=== PATIENT | male | born 1980 | race Caucasian/White ===

== ENCOUNTER 2018-01-05 21:49 | Emergency (ER) | payer OTHER ==
[2018-01-05 22:08] LABS: ADD MAN DIFF? NO
[2018-01-05 22:13] LABS: BASO # 0.1 x10^3/uL (0.0-0.2); BASO % 1 % (0-3); EOS # 0.1 x10^3/uL (0.0-0.7); EOS % 2 % (0-3); HEMATOCRIT 44.7 % (39.0-53.0); HEMOGLOBIN 14.6 g/dL (13.0-17.5); LYMPH # 1.8 x10^3/uL (1.0-4.8); LYMPH % 25 % (24-48); MEAN CORPUSCULAR HEMOGLOBIN 26 pg (25-35); MEAN CORPUSCULAR HGB CONC 33 g/dL (31-37); MEAN CORPUSCULAR VOLUME 78 fL (79-100); MONO # 0.7 x10^3/uL (0.0-1.1); MONO % 10 % (0-9); NEUT # 4.4 x10^3uL (1.8-7.7); NEUT % 62 % (31-73); PLATELET COUNT 194 x10^3/uL (140-400); RED BLOOD COUNT 5.74 x10^6/uL (4.30-5.70); RED CELL DISTRIBUTION WIDTH 17.5 % (11.5-14.5); WHITE BLOOD COUNT 7.1 x10^3/uL (4.0-11.0)
[2018-01-05 22:20] LABS: ANION GAP 11 (6-14); BLOOD UREA NITROGEN 13 mg/dL (8-26); CALCIUM 8.9 mg/dL (8.5-10.1); CARBON DIOXIDE 26 mmol/L (21-32); CHLORIDE 99 mmol/L (98-107); CREATININE 1.2 mg/dL (0.7-1.3); GFR 67.4; GLUCOSE 112 mg/dL (70-99); POTASSIUM 3.1 mmol/L (3.5-5.1); SODIUM 136 mmol/L (136-145)
[2018-01-05 22:22] LABS: INR 1.1 (0.8-1.1); PARTIAL THROMBOPLASTIN TIME 25 SEC (24-38); PROTHROMBIN TIME PATIENT 13.3 SEC (11.7-14.0)
[2018-01-05] MEDS: IV NORMAL SALINE 1000ML BAG 1,000 ML IV (22:22)
== END 2018-01-06 01:53 | disposition home or self-care (01) ==
LOC: ER 01-06 01:53
DX: F41.9 Anxiety disorder, unspecified (principal); R00.2 Palpitations; R00.0 Tachycardia, unspecified; F32.9 Major depressive disorder, single episode, unspecified
CPT/HCPCS: 36415; 80048; 84484; 85025; 85610; 85730; 93005; 96374; 96375; 96376; 99285-25; J2060; J7030

== ENCOUNTER → 2019-04-11 | Day surgery (SDC) | payer OTHER ==
[~2019-04-11] MED LIST: ALPR1TAB2 PO; ASPI81TA50 PO; BUSP10TA PO; CARV25TA PO; IV RINGERS,LACTATED 1000ML 1,000 ML IV SCH; LIDOCAINE 2% PF 5 ML VIAL. ONE; LORA-434 PO; MULT1TAB52 PO; PROPOFOL 20 ML IV ONE; SACU1TAB PO; SPIR25TA PO; TRAZ-118 PO; WARF-31 PO
[2019-04-11 14:47] VITALS: BP 132/85
--- NOTE | 2019-04-12 14:06 | PATHOLOGY ---
[facility] Accession Number: [id number] . 01 Material submitted: . esophagus - DISTAL ESOPHAGUS BIOPSIES. Modifiers: distal . 01 Clinical history: . Epigastric pain . 02 Diagnosis: Esophageal biopsies, distal esophagus: - Segments of hyperplastic squamous esophageal mucosa showing focal active chronic inflammation, consistent with reflux esophagitis. (JPM:rikki; 04/12/2019) QMS 04/12/2019 0852 Local . 02 Comment: Sections of the distal esophageal biopsy reveal segments of tangentially oriented hyperplastic squamous esophageal mucosa showing focal active chronic inflammation. The findings are consistent with reflux esophagitis. There is no evidence of Moreno's change, dysplasia, or malignancy. (JPM:rikki; 04/12/2019) . 02 Electronically signed: . Presley Douglas MD, Pathologist NPI- [id number] . 01 Gross description: . Received in formalin labeled "Henry Butcher, distal esophageal BX's," are 3 segments of arrieta soft tissue measuring 0.5 x 0.5 x 0.2 cm in aggregate dimensions and ranging from 0.4 to 0.5 cm in maximum dimension. The specimen is submitted entirely in cassette A1. (TSD; 04/11/2019) TOB/TOB 04/11/2019 1756 Local . 02 Pathologist provided ICD-10: K21.0 . 02 CPT . 754861 Specimen Comment: A courtesy copy of this report has been sent to Specimen Comment: [phone], . Specimen Comment: Report sent to / DR BLACKMAN Performed at: [address], [place], [place] [id number] MD Carlos Kat MD Phone: [phone] Performed at: 02 [facility] [address] [place] [id number] MD Presley Douglas MD Phone: [phone]
== END ==
LOC: SURG 12:46
PROVIDERS: ATTEND Internal Medicine Gastroenterology
DX: R10.13 Epigastric pain (principal); K21.0 Gastro-esophageal reflux disease with esophagitis; F41.9 Anxiety disorder, unspecified; F32.9 Major depressive disorder, single episode, unspecified; I25.2 Old myocardial infarction; Z72.89 Other problems related to lifestyle; Z87.891 Personal history of nicotine dependence
CPT/HCPCS: 43239; 88305; J2001; J2704